=== PATIENT | male | born 1950 | race Caucasian/White ===

== ENCOUNTER 2019-11-17 16:43 | Emergency (ER) | payer MEDICARE, BC, SELFPAY ==
[2019-11-17 16:55] VITALS: BP 132/63; PULSE 73; RESP 20; TEMP 37; O2SAT 99
--- NOTE | 2019-11-17 17:19 | ED.SKABFB ---
HPI - Skin/Abscess/Foreign Bdy General Chief complaint: Skin/Abscess/Foreign Body Stated complaint: right foot red and swollen Time Seen by Provider: 11/17/19 17:19 Source: patient and RN notes reviewed History of Present Illness HPI narrative: Patient is a 69-year-old male who presents the urgent care with complaints of right foot swelling and redness. Patient states he has a history of both cellulitis and gout. 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 States that he has had the cellulitis in the same spot multiple times. States that he had an abscess to the buttocks when he was in [place] and was seen in the emergency room and had clindamycin leftover. Patient states he has been taking that for the last couple days but is only been taking 2 a day. Patient states that he noticed this area on Monday and is become more painful to walk. Patient denies any known fall, injury. Patient denies any shortness of breath or chest pain. Denies any known fever. No other acute complaints. No acute distress noted. Patient read the plan of care. Related Data Allergies Allergy/AdvReac Type Severity Reaction Status Date / Time NSAIDS (Non-Steroidal Allergy Intermediate Other Verified 11/17/19 17:16 Anti-Inflamma Review of Systems Review of Systems: Narrative: CONSTITUTIONAL: Denies fever, chills, or sweats. EYES: Denies visual changes, redness, or discharge. ENT: Denies rhinorrhea, congestion, sore throat, or otalgia. CARDIOVASCULAR: Denies chest pain, palpitations, or edema. RESPIRATORY: Denies cough or dyspnea. GASTROINTESTINAL: Denies abdominal pain, nausea, vomiting, or diarrhea. GENITOURINARY: Denies dysuria or hematuria. SKIN: Denies rash or itching. MUSCULOSKELETAL: Reports of redness, pain, swelling to the right foot NEUROLOGIC: Denies headache, numbness, or weakness. All other systems reviewed are negative, except as documented in HPI. PMFSH Comments At the time of my signature, I reviewed and agree with the nursing past medical, surgical, social, and family history. There is no relevant family history pertinent to the patient complaint. Exam Narrative: Exam Narrative: GENERAL: This is a well-nourished, well-developed patient, in no apparent distress. HEAD: normocephalic, atraumatic. EYES: PERRL. Sclera clear/white. Vision is grossly intact. EARS: External ears normal NOSE: External nose normal with no obvious nasal discharge, nares without redness, no rhinorrhea. THROAT: Mucous membranes moist NECK: Neck supple CARDIOVASCULAR: Regular rate and rhythm without murmurs, gallops, or rubs. SKIN: Very dry skin and multiple scabs throughout. Warm, intact with no suspicious lesions or rash, good texture and turgor. NEURO: awake, alert, and oriented to person, place and time. There were no obvious focal neurologic abnormalities. EXTREMITIES: Positive strong right pedal pulse with capillary refill less than 2 seconds. Very mild edema, erythema and tenderness noted to the lateral aspect of the right dorsal foot Course Vital Signs Vital signs: Vital Signs Temperature 98.6 F 11/17/19 16:55 Pulse Rate 73 11/17/19 16:55 Respiratory Rate 20 11/17/19 16:55 Blood Pressure 132/63 11/17/19 16:55 Pulse Oximetry 99 11/17/19 16:55 Temperature 98.6 F 11/17/19 16:55 Pulse Rate 73 11/17/19 16:55 Respiratory Rate 20 11/17/19 16:55 Blood Pressure 132/63 11/17/19 16:55 Pulse Oximetry 99 11/17/19 16:55 Reviewed MDM - Skin/Abscess/Foreign Bdy MDM Narrative Medical decision making narrative: Advised patient to complete oral antibiotic regimen as prescribed. Make sure to eat and drink with the medication. Take probiotic while on the medication. Be aware of signs and symptoms of worsening infection such as increased swelling, redness, fever, nausea, vomiting. Be aware of symptoms of blood clot such as shortness of breath or chest pain, or increased redness and swelling. If any of the above
== END 2019-11-17 17:36 | disposition home or self-care (01) ==
PROVIDERS: Emergency Provider Nurse Practitioner Family; PCP Internal Medicine
DX: L03.115 Cellulitis of right lower limb (principal); Z96.641 Presence of right artificial hip joint
CPT/HCPCS: 99213; G0463